=== PATIENT | female | born 1965 | race Caucasian/White ===

== ENCOUNTER 2025-01-01 14:06 | Emergency (ER) | payer BC, SELFPAY ==
[2025-01-01 14:12] VITALS: BP 137/79; PULSE 104; TEMP 36.8; O2SAT 96; BMI 29.1
--- NOTE | 2025-01-01 14:22 | ED_ITS ---
HPI HPI - General Adult General Chief complaint: Shortness of Breath/Dyspnea Stated complaint: SOB LOW OXYGEN COUGH Time Seen by Provider: 01/01/25 14:07 Source: patient Mode of arrival: walk-in Limitations: no limitations History of Present Illness HPI narrative: Patient is a 59-year-old female who presents to the emergency department for evaluation of sore throat, cough, congestion. She states she saw her primary care provider on 12/25/2024 and mention the cough, she was placed on amoxicillin. She states she completed the 7-day course of amoxicillin but in the last day her symptoms of gotten worse. She reports sputum production without hemoptysis. She is wheezing. She denies any history of COPD or emphysema but does believe she has had asthma. No fevers, vomiting or diarrhea. No sick contacts. She works at [employer]. She states she quit smoking 30 years ago. Related Data Previous Rx's ?Medication ?Instructions ?Recorded albuterol sulfate 90 mcg/actuation 2 inh inhalation Q4H PRN shortness 01/01/25 aerosol inhaler of breath or wheezing #8.5 grams cscqavkssvirklx-xwllcfmwvhsuzvk-BK 10 ml PO Q6H PRN cold symptoms 01/01/25 2 mg-30 mg-10 mg/5 mL oral syrup #200 mL (Bromfed DM) doxycycline hyclate 100 mg tablet 100 mg PO BID 10 days #20 tabs 01/01/25 methylprednisolone 4 mg tablets in See Rx Instructions .Route 01/01/25 a dose pack (Medrol (Ryan)) .COMPLEX #21 ea Allergies Allergy/AdvReac Type Severity Reaction Status Date / Time morphine Allergy Mild Hallucinati Verified 01/01/25 14:12 ng iodine Allergy Unknown Unknown Verified 01/01/25 14:12 Opioid HPI Opioid Management Most Recent Opioid Data: No Data to Display Review of Systems ROS Constitutional Denies: fever or chills Ears, nose, mouth, and throat Reports: throat pain and nasal congestion Cardiovascular Denies: chest pain Respiratory Reports: shortness of breath, cough, wheezing, change in phlegm color and chest congestion Gastrointestinal Denies: nausea or vomiting Musculoskeletal Denies: back pain Integumentary/Breast Denies: rash Neurological Denies: headache Hematologic/Lymphatic Denies: easy bruising or easy bleeding PFSH PFSH Social History Little interest or pleasure in doing things: not at all Feeling down, depressed, or hopeless: not at all Exam Narrative Exam Narrative: Gen.: Awake, alert, in no distress Head: Normocephalic, atraumatic ENT: Moist mucous membranes Respiratory: No respiratory distress, inspiratory and expiratory wheezing with scattered rhonchi. Speaks in full sentences Cardio: Regular rate and rhythm Extremities: Moves extremities equally Psych: Normal mood and affect Neuro: No focal neuro deficit Skin: Warm, dry, intact Constitutional Vital Signs, click to edit/add: Last Vital Signs Temp 98.2 F 01/01/25 14:12 Pulse 104 H 01/01/25 14:12 Resp 16 01/01/25 14:12 BP 137/79 01/01/25 14:12 Pulse Ox 96 01/01/25 14:41 O2 Del Method Room Air 01/01/25 14:41 FiO2 101 01/01/25 14:41 Course Vital Signs Vital signs: Vital Signs Temperature 98.2 F 01/01/25 14:12 Pulse Rate 104 H 01/01/25 14:12 Respiratory Rate 16 01/01/25 14:12 Blood Pressure 137/79 01/01/25 14:12 Pulse Oximetry 96 01/01/25 14:12 Oxygen Delivery Method Room Air 01/01/25 14:12 Temperature 98.2 F 01/01/25 14:12 Pulse Rate 104 H 01/01/25 14:12 Respiratory Rate 16 01/01/25 14:12 Blood Pressure 137/79 01/01/25 14:12 Pulse Oximetry 96 01/01/25 14:41 Oxygen Delivery Method Room Air 01/01/25 14:41 Fraction of Inspired Oxygen 101 01/01/25 14:41 Medical Decision Making MDM Narrative Medical decision making narrative: Patient given a breathing treatment and intramuscular Solu-Medrol. Flu and COVID swabs are negative. Chest x-ray reviewed by the radiologist with no evidence of acute cardiopulmonary changes and the patient is placed on doxycycline based on length of illness with albuterol inhaler, Bromfed-DM and Medrol Dosepak. Follow-up with PCP and return to the ER if symptoms change or worsen. SUPERVISED APC VISIT, PHYSICIAN ATTESTATION: Based on the medical record the care appears appropriate. ? Medical Records Medical records reviewed: Yes I reviewed the patient's medical records Lab Data Lab results reviewed: Yes I reviewed the patient's lab results Labs: Lab Results 01/01/25 Range/Units 14:24 Influenza Type A Ag Negative Influenza Type B Ag Negative SARS-CoV-2 Ag (CV2AG) Negative (NEGATIVE) Imaging Data Chest x-ray: Attestation: I have reviewed the pertinent imaging results. Discharge Plan Discharge Chief Complaint: Shortness of Breath/Dyspnea Clinical Impression: Upper respiratory infection Patient Disposition: Home, Self-Care Time of Disposition Decision: 15:23 Condition: Good Prescriptions / Home Meds: New methylprednisolone [Medrol (Ryan)] 4 mg tablets,dose pack See Rx Instructions .ROUTE .COMPLEX Qty: 21 0RF Rx Instructions: Taper as directed albuterol sulfate 90 mcg/actuation HFA aerosol inhaler 2 inh inhalation Q4H PRN (Reason: shortness of breath or wheezing) Qty: 8.5 0RF vcekmqffzvfziyk-pflcxzknq-TP [Bromfed DM] 2-30-10 mg/5 mL syrup 10 ml PO Q6H PRN (Reason: cold symptoms) Qty: 200 0RF doxycycline hyclate 100 mg tablet 100 mg PO BID 10 Days Qty: 20 0RF Print Language: [place] Islander Instructions: Upper Respiratory Infection (ED) Referrals: KEYONA DODD [Primary Care Provider] - 1 week
[2025-01-01] MEDS: METHYLPREDNISOLONE SOD SUCC PF 125 MG/2 ML VIAL IM (14:33)
[2025-01-01] MEDS: ALBUTEROL SULFATE 2.5 MG/3 ML VIAL NEB IH (14:40)
[2025-01-01 14:41] VITALS: O2SAT 96
[2025-01-01 14:42] LABS: Influenza Virus A Antigen Negative; Influenza Virus B Antigen Negative; Internal Control Within Normal Limits; SARS-CoV-2 Ag NEGATIVE (NEGATIVE)
[2025-01-01] MEDS: KETOROLAC TROMETHAMINE 10 MG TABLET PO (15:28)
[2025-01-01 15:30] VITALS: BP 132/88; PULSE 88; O2SAT 98
== END 2025-01-01 15:31 | disposition home or self-care (01) ==
PROVIDERS: Physician Assistant; Emergency Provider Emergency Medicine; PCP Internal Medicine
DX: J06.9 Acute upper respiratory infection, unspecified (principal); Z87.891 Personal history of nicotine dependence
CPT/HCPCS: 71045; 71046; 87804; 87811; 94640; 96372; 99285; J2919